=== PATIENT | female | born 1980 | race Caucasian/White ===

== ENCOUNTER 2019-05-03 13:18 | Emergency (ER) | payer MEDICAID, SELFPAY ==
[2019-05-03 13:18] VITALS: BP 144/83; PULSE 65; RESP 17; TEMP 36.6; O2SAT 98; BMI 38.2
--- NOTE | 2019-05-03 13:32 | EKG12_ITS ---
Test Reason : ASTHMA Blood Pressure : / mmHG Vent. Rate : 055 BPM Atrial Rate : 055 BPM P-R Int : 180 ms QRS Dur : 108 ms QT Int : 440 ms P-R-T Axes : 038 019 033 degrees QTc Int : 420 ms Sinus bradycardia Otherwise normal ECG Confirmed by YU HOLGUIN, SHIRA ([id number]), script editor RHIANNON OBANDO ([id number]) on 05/06/2019 1:49:21 PM Referred By: ISSA Confirmed By:SHIRA NICHOLAS MD
--- NOTE | 2019-05-03 13:33 | RAD_ITS ---
STUDY: X-RAY CHEST REASON FOR EXAM: Female, 38 years old. Shortness of breath TECHNIQUE: PA and lateral views of the chest. COMPARISON: None. FINDINGS: The lungs are clear and expanded. There is no demonstrated pleural abnormality. Normal size heart. Normal mediastinum and gavin. Normal visualized pulmonary arteries. Normal visualized aortic arch and descending thoracic aorta. Normal visualized thoracic spine. Normal visualized ribs, clavicles, and shoulders. There is no demonstrated abnormality of the visualized soft tissue structures of the upper abdomen. RAD/Chest PA and Lateral IMPRESSION: Normal x-ray examination of the chest. Electronically Signed: Derick Valle, at 15:12 EDT Tel , Service support ,
[2019-05-03] MEDS: Ipratropium/Albuterol Sulfate 3 ML AMPUL.NEB INHALATION (13:45)
[2019-05-03] MEDS: Albuterol 2.5 MG/3 ML VIAL.NEB. INHALATION ×3 (13:45)
[2019-05-03] MEDS: predniSONE 20 MG Tablet 60 MG PO (13:46)
[2019-05-03 13:52] VITALS: PULSE 80; RESP 18
--- NOTE | 2019-05-03 14:33 | ED.VISSUMM ---
- ER Visit Summary Date of Service: 05/03/19 Chief Complaint: Shortness of breath History of Present Illness: The patient is a 38 F presents to the emergency department shortness of breath. Patient does have a long-standing history of asthma. She states that she was driving up here from [place] as she and her significant other work and [place]. She states on the right, she began to have an asthma flare. She was having chest tightness, nonproductive cough, and felt like she was wheezing. She did not have her inhaler with her. She denies any fevers or chills. She states she has not been on steroids for quite some time. She does smoke. She has no history of cardiovascular disease. Physical Examination: Vital signs reviewed General: Well-nourished, well-developed Head: Normocephalic, atraumatic Eyes: Pupils equal and reactive, extraocular muscles intact Neck, supple, no lymphadenopathy Heart: Regular rate and rhythm Respiratory: No distress, scant wheeze throughout Abdomen: Soft, nontender, nondistended, no peritoneal signs Back: Nontender Extremities: Nontender, no edema, no cords Skin: Normal color no rash Neuro: Alert and oriented, no focal or lateralizing deficits Test Results: [] Emergency Department Course and Treatment: [Patient was placed on a monitor. EKG was obtained which showed sinus rhythm without acute ischemia. Patient was given oral prednisone. She is also given nebulized breathing treatments. Her aeration had improved. Chest x-ray was obtained which was unremarkable. On reevaluation, she is not tachypneic, hypoxic, or tachycardic. I do feel this is a straightforward asthma exacerbation and she is safe for outpatient therapy. She will be given a prescription for new inhaler will be kept on prednisone for the next 4 days. Treatment Plan: [] Disposition: Discharge Impression: 1. Asthma exacerbation This note was generated with [employer] dictation software. It may contain incorrect words, spelling, and punctuation that were not noted in review of the chart prior to signing ED Disposition - Plan for ED Patient: Instructions: ASTHMA, Acute (Adult) Prescriptions: Prednisone [Deltasone] 40 mg PO DAILY #10 tab Prescription Printed Albuterol IH (ProAir) [Proair Hfa (SP)Vent Pts] 2 puff INHALATION Q4H PRN PRN #1 inhaler PRN Reason: Wheezing Prescription Printed Referrals: [facility] Doctor,Out of [Primary Care Provider] -
[2019-05-03 14:59] VITALS: PULSE 74; O2SAT 98
== END 2019-05-03 14:59 | disposition home or self-care (01) ==
LOC: ED 13:49
PROVIDERS: Emergency Provider Emergency Medicine
DX: J45.901 Unspecified asthma with (acute) exacerbation (principal); F17.200 Nicotine dependence, unspecified, uncomplicated; I10 Essential (primary) hypertension; E11.9 Type 2 diabetes mellitus without complications; Z79.84 Long term (current) use of oral hypoglycemic drugs; Z79.899 Other long term (current) drug therapy
CPT/HCPCS: 71046; 93005; 94640; 99283

== ENCOUNTER 2019-06-14 19:58 | Emergency (ER) | payer MEDICAID, SELFPAY ==
[2019-06-14 19:59] VITALS: BP 156/83; PULSE 78; RESP 15; TEMP 37; O2SAT 97; BMI 37.9
--- NOTE | 2019-06-14 20:53 | ED.VIS.GEN ---
History of Present Illness Chief Complaint: Complaint Informant: Patient Onset: Today - 1 hour prior to presentation Context: Sudden Onset Timing: Continuous Quality: Pain with urination and blood on toilet paper Location: Current Severity: Mild Maximum Severity: Severe Worsened by: Urination Relieved by: Not urinating Associated Symptoms: Low central back pain Narrative: Patient is a 38-year-old woman who presents with dysuria and hematuria that started 1 hour prior to presentation. Denies fever, chills night sweats. She denies nausea, vomiting diarrhea. She does complain of central low back pain. She has no other complaints. She has not had a recent urinary tract infection. Prior similar symptoms: No Recent Illness/Hospitalization: No - Past Medical History (1) No significant past medical history Status: Acute Past Medical History - Allergies and Home Meds Allergies/Adverse Reactions: Allergies No Known Allergies Allergy (Verified 06/14/19 20:02) Primary Care Physician: Rosangela Marie,Out of [Primary Care Provider] - Prior records reviewed: No Past Medical History: None Surgical History: noncontributory Lives: - - Easily Smoking Status: Current every day smoker Alcohol: Rare Drugs: None Review of Systems General: Denies: Chills, Fever, Malaise, Sweats Gastrointestinal: Denies: Abdominal pain, Nausea, Vomiting, Diarrhea Genitourinary: Reports: Dysuria, Hematuria, Frequency Musculoskeletal: Reports: Back pain. Denies: Myalgias, Arthralgias, Neck pain, Swelling, Extremity Pain, -, - Skin: Denies: Rash, Wounds Neurological: Denies: Weakness, Parasthesia, Numbness Hematologic: Denies: Easy bruising, Easy bleeding Physical Exam Vital Signs/Narrative: Vital Signs Temp Pulse Resp BP Pulse Ox 06/14/19 19:59 98.6 F 78 15 156/83 H 97 Inital Vital Signs reviewed: Yes General: Well nourished, Well developed, No Acute Distress Head: Normocephalic, Atraumatic Eyes: Perrl, EOMI. Negative for: Pale conjunctiva, Scleral icterus, - ENT: Moist mucous membranes, No rhinorrhea Cardiovascular: Regular rate, Regular rhythm, No murmurs, Normal S1, Normal S2 Respiratory: No distress, CTA bilaterally, Chest nontender Abdomen: Soft, Nontender, Nondistended, Normal bowel sounds, No masses Back: Nontender, Normal Inspection, CVA tenderness - Equivocal on the right Skin: Normal color, No rash Neurological: Alert, Oriented x3, Cranial nerves II-XII grossly intact, Normal Strength, Normal Sensation Psychological: Normal affect, Normal Mood Diagnostic/Tx/Re-eval Laboratory Results 06/14/19 06/14/19 21:00 21:00 Urine Color Yellow Urine Clarity Cloudy Urine pH 5.0 Ur Specific [place] 1.030 Urine Protein 15 H Urine Glucose (UA) Normal Urine Ketones 5 H Urine Occult Blood 150 H Urine Nitrite Negative Urine Bilirubin Negative Urine Urobilinogen Normal Ur Leukocyte Esterase Negative Urine RBC 0-5 SEEN Urine WBC 0-5 SEEN Ur Squamous Epith Cells 0-5 SEEN Calcium Oxalate Crystal 1+ Urine Bacteria 0 SEEN Hyaline Casts 0-5 SEEN Urine Mucus 3+ Urine Test Negative Urine does not indicate evidence of infection. There is no hematuria noted either. There is microscopic blood noted. - Medical Decision Making With history of dysuria and hematuria suspect patient has urinary tract infection. Will obtain UA to determine if she has an infection or if she only has blood and need to entertain possibility of ureterolithiasis. Patient was informed of results. She was instructed to follow-up with her primary care physician. She is from [place]. ED Disposition - Plan for ED Patient: Disposition: Home or Assisted Living Instructions: DYSURIA, Uncertain Cause (Adult) Prescriptions: Phenazopyridine HCl [Pyridium] 200 mg PO TID #10 tab Prescription Printed Referrals: [facility] Doctor,Out of [Primary Care Provider] - 3-5 Days if not improving
[2019-06-14 21:11] LABS: Bacteria 0 SEEN /hpf (None Seen)
[2019-06-14 21:20] LABS: Color, Urine Yellow (Yellow); Glucose, Dipstick Normal (Normal); Ketone-Dipstick 5 mg/dl (Negative); Leukocyte Esterase-Dipstick Negative /ul (Negative); Nitrite-Dipstick Negative (Negative); Occult Blood-Urine 150 /ul (Negative); Protein-Dipstick 15 mg/dl (Negative); Urine Bilirubin Dipstick Negative (Negative); Urine Clarity Cloudy (Clear); Urine Urobilinogen Normal (Normal)
[2019-06-14 21:24] LABS: Internal QC Validated? YES +Cl - CLEAR BKGD; Pregnancy, Urine Negative Negative
[2019-06-14 21:27] LABS: Hyaline Cast 0-5 SEEN /lpf (0-5); Mucous, Urine 3+ /hpf (<or=2+); Squamous Epithelial Cells - UA 0-5 SEEN /hpf (5-10)
[2019-06-14 21:30] LABS: Calcium Oxalate Crystals Ur 1+ /hpf (<or=2+); Red Blood Cells-Urine 0-5 SEEN /hpf (0-5)
[2019-06-14 21:31] LABS: White Blood Cells 0-5 SEEN /hpf (0-5)
[2019-06-14 22:14] VITALS: RESP 18
[2019-06-14] MEDS: Phenazopyridine 95 MG Tablet 190 MG PO (22:14)
== END 2019-06-14 22:15 | disposition home or self-care (01) ==
PROVIDERS: Emergency Provider Emergency Medicine
DX: R30.0 Dysuria (principal); F17.200 Nicotine dependence, unspecified, uncomplicated
CPT/HCPCS: 81001; 81025; 99282